=== PATIENT | female | born 2005 | race Caucasian/White ===

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

== ENCOUNTER 2024-11-08 02:54 | Emergency (ER) | payer OTHER ==
[2024-11-08 03:05] VITALS: RESP 18; BMI 37.0
[2024-11-08] MEDS ORDERED: ONDANSETRON 4 MG/2 ML VIAL ONE (03:32)
[2024-11-08] MEDS ORDERED: ACETAMINOPHEN INJECTION 100 ML ONE (03:32)
[2024-11-08 03:39] LABS: HCG,QUALITATIVE URINE Negative
[2024-11-08] MEDS: ONDANSETRON 4 MG/2 ML VIAL IVPUSH ONE (03:44)
[2024-11-08] MEDS: ACETAMINOPHEN 1000 MG/100 ML BAG IVPB ONE (03:44)
[2024-11-08 03:45] LABS: ABSOLUTE IMMATURE GRANULOCYTES 0.05 x10^3/uL (0.0-0.031); BASOPHILS # 0.03 x10^3/uL (0.01-0.08); EOSINOPHIL % 1.3 % (0.7-5.8); EOSINOPHILS # 0.19 x10^3/uL (0.04-0.36); MCHC 33.2 g/dl (32.2-35.5); MEAN CELL VOLUME 86.0 fl (79.4-94.8); MEAN PLT VOLUME 10.5 fl (9.4-12.3); MONOCYTE # 0.69 x10^3/uL (0.24-0.86); MONOCYTE % 4.8 % (4.7-12.5); RDW 12.9 % (12.0-16.2)
[2024-11-08] MEDS: SODIUM CHLORIDE 0.9% 500 ML INFUS.BAG IV ONE (03:45)
[2024-11-08 03:54] LABS: URINE APPEARANCE CLEAR; URINE BILIRUBIN NEGATIVE (NEGATIVE); URINE COLOR YELLOW; URINE GLUCOSE (UA) NEGATIVE (NEGATIVE); URINE KETONE NEGATIVE (NEGATIVE); URINE LEUK ESTERASE NEGATIVE (NEGATIVE); URINE NITRITE NEGATIVE (NEGATIVE); URINE PROTEIN TRACE (NEGATIVE); URINE UROBILINOGEN 1.0 mg/dL (0.2-1.0)
[2024-11-08 04:24] LABS: CO2 24.0 mmol/L (21-32); GLUCOSE,RANDOM 114.0 mg/dL (74-106)
[2024-11-08 04:27] LABS: CREATININE 0.8 mg/dL (0.55-1.3); SGOT/AST 29.0 U/L (15-37); SGPT/ALT 41.0 U/L (13-61)
[2024-11-08 04:29] LABS: TOT PROT 7.1 g/dl (6.4-8.2)
[2024-11-08 04:30] LABS: ALK PHOS 145.0 U/L (45-117)
[2024-11-08 04:34] LABS: ACTIVATED PTT 27.3 SECONDS (25.2-36.5); INR 1.08 (0.83-1.09); PROTHROMBIN TIME (PATIENT) 11.8 SEC (9.7-13.0)
[2024-11-08 05:26] LABS: HIV INTERPRETATION NEGATIVE (NEGATIVE)
[2024-11-08 06:21] LABS: HCV DIAGNOSTIC IN-HOUSE W/RFLX NON-REACTIVE (NONREACTIVE)
[2024-11-08 08:21] VITALS: BP 111/64; PULSE 62; TEMP 98.7
== END 2024-11-08 09:30 | disposition home or self-care (01) ==
LOC: JER 02:54
PROC: 3E033NZ Introduction of Analgesics, Hypnotics, Sedatives into Peripheral Vein, Percutaneous Approach (ICD-10-PCS; principal; 2024-11-08)
PROC: 3E033GC Introduction of Other Therapeutic Substance into Peripheral Vein, Percutaneous Approach (ICD-10-PCS; 2024-11-08)
DX: K80.20 Calculus of gallbladder without cholecystitis without obstruction (principal); R10.13 Epigastric pain; R11.2 Nausea with vomiting, unspecified
CPT/HCPCS: 36415; 76705-TC; 80053; 81003; 83690; 84703; 85025; 85610; 85730; 86803; 86850; 86900; 86901; 87086; 87389; 99285-25